=== PATIENT | male | born 1960 | race Two or more races ===

== ENCOUNTER 2018-02-02 09:00 | Outpatient (AMBR) | payer MEDICAID, SELFPAY ==
--- NOTE | 2018-01-03 10:24 | PT.ODAYNRPT ---
PT Outpatient Daily Note Date of Service: January 03, 2018 OP Daily Note Visit Reasons: knee pain Outpatient Physical Therapy Treatment Date: 01/03/18 Subjective: Pt's knee feels okay. Pt saw surgeon tuesday and was satisfy and will be ordering him a new ACL brace Objective: Please see flow chart for list of ther ex performed Assessment: added more closed chain exercise with no increase knee pain. cues to correct and perform monster walk. Plan: Continue with PT Length of Time (minutes) of Treatment: 30 Minutes Office Procedures PT Procedures PT Date of Service: 01/03/18 Therapeutic Exercise 30 minutes: Yes
--- NOTE | 2018-01-05 13:04 | PT.ODAYNRPT ---
PT Outpatient Daily Note Date of Service: January 05, 2018 OP Daily Note Visit Reasons: knee pain Outpatient Physical Therapy Treatment Date: 01/05/18 Subjective: pt doing well upon visit. 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 Objective: see flow sheet. Assessment: eduacted pt about protocols and having patience with recovery. pt did well today indicated by no complaints with ther ex. good posture with mini squats using the PB. no muscle weakness noted with exercises nor signs of SOB. good stability while ascending and descending the step and using the thera band. pt refused ice pack as he can use one at home. advised pt to keep using the stationary bike as it will help with ROM and endurance. Plan: continue POC per PT. Length of Time (minutes) of Treatment: 30 Minutes Office Procedures PT Procedures PT Date of Service: 01/03/18 Therapeutic Exercise 30 minutes: Yes PT Procedures PT Date of Service: 01/05/18 Therapeutic Exercise 30 minutes: Yes
--- NOTE | 2018-01-10 11:30 | PT.ODAYNRPT ---
PT Outpatient Daily Note Date of Service: January 10, 2018 OP Daily Note Visit Reasons: knee pain Outpatient Physical Therapy Treatment Date: 01/10/18 Subjective: Pt's knee feels much better. Pt stated that it still feels at times it wants to give, however, less pain each week Objective: Please see flow chart for list of ther ex performed Assessment: tolerate exercises with minimal pain Plan: Continue with PT Length of Time (minutes) of Treatment: 30 Minutes Office Procedures PT Procedures PT Date of Service: 01/03/18 Therapeutic Exercise 30 minutes: Yes PT Procedures PT Date of Service: 01/05/18 Therapeutic Exercise 30 minutes: Yes PT Procedures PT Date of Service: 01/10/18 Therapeutic Exercise 30 minutes: Yes
--- NOTE | 2018-01-12 13:40 | PT.ODAYNRPT ---
PT Outpatient Daily Note Date of Service: January 12, 2018 OP Daily Note Visit Reasons: knee pain Outpatient Physical Therapy Treatment Date: 01/12/18 Subjective: pt doing well upon visit today. Objective: see flow sheet. Assessment: increased size in step up from 4 to 6 in which he continued to do well with. resistance band from red to green and no difficulties noted during standing exercises. pt did have a little difficulty with mini squats in PB as he tends to put more pressure on his knees causing knees over toes. corrected pt with flexing more at this hips as if he was going to sit in chair. pt needs a little more practice with squats as noted medial collapse of the knees as well. Plan: continue POC per PT. Length of Time (minutes) of Treatment: 30 Minutes Office Procedures PT Procedures PT Date of Service: 01/03/18 Therapeutic Exercise 30 minutes: Yes PT Procedures PT Date of Service: 01/05/18 Therapeutic Exercise 30 minutes: Yes PT Procedures PT Date of Service: 01/12/18 Therapeutic Exercise 30 minutes: Yes PT Procedures PT Date of Service: 01/10/18 Therapeutic Exercise 30 minutes: Yes
--- NOTE | 2018-01-19 13:40 | PT.ODAYNRPT ---
PT Outpatient Daily Note Date of Service: January 19, 2018 OP Daily Note Visit Reasons: knee pain Outpatient Physical Therapy Treatment Date: 01/19/18 Subjective: pt doing well today and had no complaints. 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 Objective: see flow sheet. Assessment: added FWD lunges onto the step with the RLE to increase ROM of knee flexion. as pt leaned FWD for knee flexion he used the arm rails on the stairs which helps with balance stability. no medial collapse noted of the R knee. pt get confused on the monster walks using thera band and needs cuing to correct each time but had no c/o pain or discomfort. refused ice pack as he will do it at home. Plan: continue POC per PT. Length of Time (minutes) of Treatment: 30 Minutes Office Procedures PT Procedures PT Date of Service: 01/03/18 Therapeutic Exercise 30 minutes: Yes PT Procedures PT Date of Service: 01/05/18 Therapeutic Exercise 30 minutes: Yes PT Procedures PT Date of Service: 01/12/18 Therapeutic Exercise 30 minutes: Yes PT Procedures PT Date of Service: 01/19/18 Therapeutic Exercise 30 minutes: Yes PT Procedures PT Date of Service: 01/10/18 Therapeutic Exercise 30 minutes: Yes
--- NOTE | 2018-01-27 11:32 | PT.ODAYNRPT ---
PT Outpatient Daily Note Date of Service: January 27, 2018 OP Daily Note Visit Reasons: knee pain Outpatient Physical Therapy Treatment Date: 01/27/18 Subjective: Pt's knee feels better. Pt started light yardwork. Objective: Please see flow chart for list of ther ex performed Assessment: no pain with SL exercise and tolerate all exercises. Plan: Continue with PT Length of Time (minutes) of Treatment: 30 Minutes Office Procedures PT Procedures PT Date of Service: 01/03/18 Therapeutic Exercise 30 minutes: Yes PT Procedures PT Date of Service: 01/05/18 Therapeutic Exercise 30 minutes: Yes PT Procedures PT Date of Service: 01/12/18 Therapeutic Exercise 30 minutes: Yes PT Procedures PT Date of Service: 01/19/18 Therapeutic Exercise 30 minutes: Yes PT Procedures PT Date of Service: 01/10/18 Therapeutic Exercise 30 minutes: Yes PT Procedures PT Date of Service: 01/27/18 Therapeutic Exercise 30 minutes: Yes
--- NOTE | 2018-02-02 10:08 | PT.ODAYNRPT ---
PT Outpatient Daily Note Date of Service: February 02, 2018 OP Daily Note Visit Reasons: knee pain Outpatient Physical Therapy Treatment Date: 02/02/18 Subjective: pt reported having pain but is not sure how to describe the sensation. pt is feeling stressed due to not working and paying bills. pt is anxious to get back to work. Objective: see flow sheet. Assessment: educated pt about his procedure and advised him to talk to the Dr about release date. pt had difficulty understanding and performing tick tocks with no band. pt tends to side bend excessively on both sides. cued pt to stabilize trunk and focus on the hips. after a few laps pt was able to correct form. cued pt to avoid locking the knees while squatting on the TG and explained to pt the importance of slight knee flexion. pt refused ice pack post ther ex. Plan: continue POC per PT. Length of Time (minutes) of Treatment: 30 Minutes Office Procedures PT Procedures PT Date of Service: 01/03/18 Therapeutic Exercise 30 minutes: Yes PT Procedures PT Date of Service: 01/05/18 Therapeutic Exercise 30 minutes: Yes PT Procedures PT Date of Service: 01/12/18 Therapeutic Exercise 30 minutes: Yes PT Procedures PT Date of Service: 01/19/18 Therapeutic Exercise 30 minutes: Yes PT Procedures PT Date of Service: 01/10/18 Therapeutic Exercise 30 minutes: Yes PT Procedures PT Date of Service: 01/27/18 Therapeutic Exercise 30 minutes: Yes PT Procedures PT Date of Service: 02/02/18 Therapeutic Exercise 30 minutes: Yes
== END 2018-02-02 23:59 ==
PROVIDERS: PCP Physician Assistant; Referring Provider Physician Assistant; Visit Provider Orthopaedic Surgery
DX: I10 Essential (primary) hypertension (principal)
CPT/HCPCS: 97110